=== PATIENT | male | born 2000 | race Two or more races ===

== ENCOUNTER 2024-05-31 17:26 | Emergency (ER) | payer BC, SELFPAY ==
[2024-05-31 18:07] VITALS: BP 134/84; PULSE 82; RESP 18; TEMP 36.8; O2SAT 97; BMI 27.7
--- NOTE | 2024-05-31 18:21 | ED_ITS ---
HPI - General Adult General Time Seen by Provider: 18:21 Date Seen: 05/31/24 Chief complaint: Nausea/Vomiting Stated complaint: Severe pain in lower back and stomach Time Seen by Provider: 05/31/24 18:21 Source: patient, family, RN notes reviewed and old records reviewed Mode of arrival: ambulatory Limitations: no limitations History of Present Illness HPI narrative: Anthony is a very pleasant 23-year-old male previously healthy who comes to the emergency room for evaluation of abdominal and back pain. Anthony states that he awoke this morning with back pain just below his rib cage that would wrap around to the for upper aspect of his stomach. It is associated with nausea any actually had an episode of vomiting this afternoon. He notes that he also has some pain with urination. Pain in his back does not change when he is urinating. He has not noticed fever or chills. He has not had problems with his gallbladder in the past. He is rating the pain a 10/10. He originally presented to Urgent Care but then was sent here to the hospital. He notes that he recently quit using marijuana and that he seems to have more pain recently. However, this pain started this morning when he woke up and has continued and worsened throughout the day. He has no leg symptoms, cough cold congestion or difficulty breathing. Related Data Home Medications ?Medication ?Instructions ?Recorded ?Confirmed No Known Home Medications 05/31/24 05/31/24 Allergies Allergy/AdvReac Type Severity Reaction Status Date / Time No Known Drug Allergies Allergy Verified 05/31/24 19:48 Review of Systems Status of ROS: Reports: 10 or more systems reviewed and unremarkable except as noted in History and below Const: Denies: fever, chills or fatigue Eyes: Denies: change in vision ENMT: Denies: throat pain, neck pain or nasal discharge Cardio: Denies: chest pain, swelling of feet/ankles, lightheadedness or shortness of breath with exertion Resp: Denies: shortness of breath or cough GI: Reports: abdominal pain, nausea and vomiting; Denies: diarrhea or constipation : Reports: painful urination; Denies: urinary frequency, urinary urgency or blood in urine Musculo: Denies: neck pain Integ/Breast: Denies: rash Neuro: Denies: headache or numbness in extremities Endo: Denies: fatigue Exam Narrative: Exam Narrative: Anthony is alert and oriented. 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 External ears eyes nose clear. Neck is supple without lymphadenopathy. Range of motion is full. Heart with regular rate and rhythm and lungs are clear bilaterally. No CVA tenderness with percussion. Abdominal exam shows a exquisite tenderness in the epigastrium. No evidence of distension. Abdomen is otherwise soft. Lower extremities show no edema. He is moving all as it his extremities without difficulty. No pain in the abdomen with straight leg raise internal external rotation of the hip or tapping of the heels. Const: Vital Signs, click to edit/add: Vital Signs - 24 hr 05/31/24 18:07 05/31/24 20:00 Temperature 98.2 F Pulse Rate 65 Pulse Rate [Pulse Oximeter] 82 Respiratory Rate 18 14 Blood Pressure 124/76 Blood Pressure [Ri ght Upper Arm] 134/84 Pulse Oximetry 97 98 Oxygen Delivery Me thod Room Air Documenting provider has reviewed patient's vital signs: yes Course Course ED Course: Differential diagnosis includes but is not limited to biliary colic, gastritis, pancreatitis, constipation, colitis, UTI, ureteral colic/kidney stone. At this time will place IV and use Toradol 15 mg and Zofran 4 mg for pain relief. Will obtain CBC, comprehensive panel, CRP, lipase, urinalysis at this time. Likely will need as CT for the level of discomfort he is describing below will await effect of pain medication. Reevaluation(s) Reevaluation #1: Patient notes improvement with the pain medication. He still has some pain. Urinalysis without evidence of hematuria or UTI. Have ordered an abdominal and pelvis CT with contrast for further evaluation. White count is elevated over 13,000. Vital Signs Vital signs: Initial Vital Signs Temperature 98.2 F 05/31/24 18:07 Temperature Source Temporal Artery Scan 05/31/24 18:07 Pulse Rate 82 05/31/24 18:07 Respiratory Rate 18 05/31/24 18:07 Blood Pressure 134/84 05/31/24 18:07 Blood Pressure Mean 100 05/31/24 18:07 Blood Pressure Position Sitting 05/31/24 18:07 Pulse Oximetry 97 05/31/24 18:07 Oxygen Delivery Method Room Air 05/31/24 18:07 Vital Signs Temperature 98.2 F 05/31/24 18:07 Pulse Rate 82 05/31/24 18:07 Respiratory Rate 18 05/31/24 18:07 Blood Pressure 134/84 05/31/24 18:07 Pulse Oximetry 97 05/31/24 18:07 Oxygen Delivery Method Room Air 05/31/24 18:07 Temperature 98.2 F 05/31/24 18:07 Pulse Rate 65 05/31/24 20:00 Respiratory Rate 14 05/31/24 20:00 Blood Pressure 124/76 05/31/24 20:00 Pulse Oximetry 98 05/31/24 20:00 Oxygen Delivery Method Room Air 05/31/24 18:07 Medications Administered Medications: Discontinued Medications Generic Name Dose Route Start Last Admin Trade Name Osiel PRN Reason Stop Dose Admin Sodium Chloride 500 mls @ 500 mls/hr 05/31/24 18:28 05/31/24 19:07 0.9 % Sodium Chloride 500 Ml IV 05/31/24 19:27 500 mls/hr .Q1H ONE Administration Ketorolac Tromethamine 15 mg 05/31/24 18:28 05/31/24 19:08 Ketorolac 15 Mg/Ml Inj IVP 05/31/24 18:29 15 mg ONCE ONE Administration Ondansetron HCl 4 mg 05/31/24 18:28 05/31/24 19:08 Ondansetron 2 Mg/Ml Inj IVP 05/31/24 18:29 4 mg ONCE ONE Administration Medical Decision Making MDM Narrative Medical decision making narrative: 1. Abdominal pain-suspect gastritis in this young man who now describes previous sensitivities to certain food and reflux. No acute or concerning findings on CT. At the end of the exam patient does note 1 episode of vomiting with a small amount of blood. Vital signs have been stable with no further vomiting. No unusual diarrhea. Patient does describe recent exposure to sick people who ate together ended up with vomiting and diarrhea. This does not appear to be like a normal virus. Patient is much improved after medications. Will give him omeprazole 40 mg this evening with plan of continued dosing 20 mg every night for 2 weeks. If he still has ongoing discomfort recommend he follow up with surgery as he may need HIDA scan although there were no stones indicated on the CT. 2. Dysuria-no evidence of urinary tract infection. Patient does admit to new sexual partner. Have added a GC chlamydia to his urinalysis from earlier. We will call if it is positive. 3. Renal stones-noted that there are stones in bilateral kidneys but none that are obstructing at this time. Have informed patient of this. 4. Disposition-home at this time. Will return for worsening symptoms and as needed. Medical Records Medical records reviewed: Yes I reviewed the patient's medical records Lab Data Lab results reviewed: Yes I reviewed the patient's lab results Labs: Lab Results 05/31/24 Range/Units 19:03 WBC 13.59 H (4.50-11.00) K/uL RBC 5.73 (4.30-5.90) m/uL Hgb 15.9 (13.5-17.5) gm/dL Hct 47.9 (37.0-53.0) % MCV 84 (80-100) fL MCH 28 (26-34) pg MCHC 33 (32-36) gm/dL RDW Coeff of Kathie 13.0 (11.5-15.5) % Plt Count 256 (140-440) K/uL Neut % (Auto) 81.7 H (42.0-72.0) % Lymph % (Auto) 7.9 L (20-44) % Dolores % (Auto) 9.2 (0.0-11.0) % Eos % (Auto) 0.8 (0.0-7.0) % Baso % (Auto) 0.2 (0.0-3.0) % Neut # (Auto) 11.10 H (1.7-7.0) K/uL Lymph # (Auto) 1.10 (0.90-2.90) K/uL Dolores # (Auto) 1.30 H (0.00-0.90) K/UL Eos # (Auto) 0.10 (0.00-0.50) K/uL Baso # (Auto) 0.00 (0.00-0.30) K/uL Abs Immat Gran (auto) 0.00 (0.00-0.30) K/uL Imm/Tot Granulo (auto) 0.2 % Sodium 137 (135-149) mmol/L Potassium 4.3 (3.6-5.1) mmol/L Chloride 99 (96-114) mmol/L Carbon Dioxide 29 (20-32) mmol/L Anion Gap 9 (7-15) mEq/L BUN 14 (5-24) mg/dL Creatinine 0.6 (0.5-1.5) mg/dL Estimated Creat Clear 186.83 Estimated GFR 140 ml/min Glucose 96 (60-115) mg/dL Calcium 9.2 (8.4-10.6) mg/dL Total Bilirubin 0.8 (0.1-1.5) mg/dL AST 37 H (12-35) U/L ALT 49 (4-50) U/L Alkaline Phosphatase 88 (40-150) U/L C-Reactive Protein 1.1 H (0.5-1.0) mg/dL Total Protein 8.2 (6.0-8.3) g/dL Albumin 4.8 (3.3-5.0) g/dL Lipase 42 (23-300) U/L Urine Color Yellow (Yellow) Urine Appearance Clear (Clear) Urine pH 8.5 (5.0-8.5) Ur Specific [place] 1.020 (1.000-1.030) Urine Protein 1+ A (Negative) Urine Glucose (UA) Negative (Negative) Urine Ketones Negative (Negative) Urine Blood Negative (Negative) Urine Nitrite Negative (Negative) Urine Bilirubin Negative (Negative) Urine Urobilinogen 1.0 (0.2-1.0) Ur Leukocyte Esterase Negative (Negative) Urine RBC 0-2 (0-2) Urine WBC 0-2 (0-5) Ur Squamous Epith Cells None (None-Few) Urine Bacteria None (None) Imaging Data CT scan - abdomen: Attestation: I have reviewed the pertinent imaging results. Radiologist's impression: Lower chest: No focal consolidation. Liver: No suspicious focal hepatic lesion. Gallbladder and bile ducts: Unremarkable. Pancreas: Unremarkable. Spleen: Unremarkable. Splenules are noted. Adrenal glands: Unremarkable. Kidneys: Kidneys enhance symmetrically, without hydronephrosis. Punctate nonobstructing bilateral renal calculi. Retroperitoneum: No lymphadenopathy. Bowel and mesentery: Bowel is not obstructed. No significant ascites, no pneumoperitoneum. Normal appendix. Bladder: Unremarkable for degree of distention. Reproductive organs: Unremarkable. Pelvic lymph nodes: No lymphadenopathy. Vessels: Unremarkable. Abdominal wall: No acute abdominal wall abnormality. Bones: No suspicious/aggressive focal osseous lesion. IMPRESSION: Punctate nonobstructing bilateral renal calculi. Discharge Plan Discharge Clinical Impression: Gastritis Patient Disposition: Home, Self-Care Condition: Improved Additional Instructions: Continue medication called omeprazole daily. This can be found at the pharmacy. You will take 1 tablet or 20 mg at bedtime. I would like you to take this for 2 weeks. Avoid alcohol during this time. Note for work to be off tomorrow. Return to the emergency room for worsening symptoms and as needed. Follow-up with our surgery clinic if you have ongoing pain and are not improving. The phone number is [phone]. Prescriptions: No Action No Known Home Medications Follow Up/Referrals: Provider,Not a Local [Primary Care Provider] - Stand Alone Forms: SergeMD Info Instructions
[2024-05-31 19:06] LABS: Appearance Urine Clear (Clear); Basophils Percent Auto 0.2 % (0.0-3.0); Bilirubin Urine Negative (Negative); Blood Urine Negative (Negative); Color Urine Yellow (Yellow); Eosinophils Percent Auto 0.8 % (0.0-7.0); Glucose Urine Negative (Negative); Hematocrit 47.9 % (37.0-53.0); Hemoglobin* 15.9 gm/dL (13.5-17.5); Immature Granulocytes Pct Auto 0.2 %; Ketones Urine Negative (Negative); Leukocyte Esterase Urine Negative (Negative); Lymphocytes Percent Auto 7.9 % (20-44); Mean Corpuscular HGB Conc 33 gm/dL (32-36); Mean Corpuscular Hemoglobin 28 pg (26-34); Mean Corpuscular Volume 84 fL (80-100); Monocytes Percent Auto 9.2 % (0.0-11.0); Neutrophils Percent Auto 81.7 % (42.0-72.0); Nitrite Urine Negative (Negative); Platelet Count* 256 K/uL (140-440); Protein Urine 1+ (Negative); RBC Urine 0-2 (0-2); Red Blood Count 5.73 m/uL (4.30-5.90); WBC Urine 0-2 (0-5); White Blood Count* 13.59 K/uL (4.50-11.00); pH Urine 8.5 (5.0-8.5)
[2024-05-31] MEDS: 0.9 % SODIUM CHLORIDE 500 ML 500 ML IV (19:07)
[2024-05-31] MEDS: KETOROLAC 15 MG/ML inj IVP (19:08)
[2024-05-31] MEDS: ONDANSETRON 2 MG/ML inj 4 MG IVP (19:08)
[2024-05-31 19:09] LABS: Slide Review Reflex No
[2024-05-31 19:19] LABS: Albumin* 4.8 g/dL (3.3-5.0); Chloride* 99 mmol/L (96-114); Potassium* 4.3 mmol/L (3.6-5.1); Sodium* 137 mmol/L (135-149)
[2024-05-31 19:21] LABS: Bilirubin Total* 0.8 mg/dL (0.1-1.5); Creatinine* 0.6 mg/dL (0.5-1.5); Est. Creatinine Clearance* 186.83; Estimated Glomerular Filt Rate 140 ml/min
[2024-05-31 19:22] LABS: Alanine Aminotransferase* 49 U/L (4-50); Alkaline Phosphatase* 88 U/L (40-150); Anion Gap 9 mEq/L (7-15); Aspartate Amino Transferase* 37 U/L (12-35); Blood Urea Nitrogen* 14 mg/dL (5-24); Carbon Dioxide* 29 mmol/L (20-32); Glucose* 96 mg/dL (60-115); Lipase* 42 U/L (23-300); Total Protein* 8.2 g/dL (6.0-8.3)
[2024-05-31 19:23] LABS: Calcium* 9.2 mg/dL (8.4-10.6)
[2024-05-31 19:25] LABS: C Reactive Protein* 1.1 mg/dL (0.5-1.0)
--- NOTE | 2024-05-31 19:41 | CRLHL7_ITS ---
For Patients: As a result of the Century Cures Act, medical imaging exams and procedure reports are released immediately into your electronic medical record. You may view this report before your referring provider. If you have questions, please contact your health care provider. INDICATION: Epigastric pain. TECHNIQUE: CT abdomen and pelvis acquired with 90 mL Isovue 370 contrast. COMPARISON: None. FINDINGS: Lower chest: No focal consolidation. Liver: No suspicious focal hepatic lesion. Gallbladder and bile ducts: Unremarkable. Pancreas: Unremarkable. Spleen: Unremarkable. Splenules are noted. Adrenal glands: Unremarkable. Kidneys: Kidneys enhance symmetrically, without hydronephrosis. Punctate nonobstructing bilateral renal calculi. Retroperitoneum: No lymphadenopathy. Bowel and mesentery: Bowel is not obstructed. No significant ascites, no pneumoperitoneum. Normal appendix. Bladder: Unremarkable for degree of distention. Reproductive organs: Unremarkable. Pelvic lymph nodes: No lymphadenopathy. Vessels: Unremarkable. Abdominal wall: No acute abdominal wall abnormality. Bones: No suspicious/aggressive focal osseous lesion. IMPRESSION: Punctate nonobstructing bilateral renal calculi. Please note that all CT scans at this facility use dose modulation, iterative reconstruction, and/or weight-based dosing when appropriate to reduce radiation dose to as low as reasonably achievable. Dictated by Everardo Cameron MD @ 05/31/2024 8:27:43 PM (Electronically Signed)
[2024-05-31 20:00] VITALS: BP 124/76; PULSE 65; RESP 14; O2SAT 98
[2024-05-31] MEDS: OMEPRAZOLE 20 MG CAPSULE DR 40 MG PO (21:07)
[2024-05-31 21:26] LABS: Lab Add On Test New Spec Needed
== END 2024-05-31 21:18 | disposition home or self-care (01) ==
PROVIDERS: Emergency Provider Family Medicine
DX: K29.70 Gastritis, unspecified, without bleeding (principal); R30.0 Dysuria
CPT/HCPCS: 36415; 74177; 80053; 81001; 83690; 85025; 86140; 96374; 96375; 99284; A9270; J1885; J2405; J7030; Q9967

== ENCOUNTER 2025-01-25 18:32 | Emergency (ER) | payer OTHER, BC, SELFPAY ==
--- NOTE | 2025-01-25 18:34 | ED.GENADULT ---
HPI - General Adult General Chief complaint: Extremity Pain/Injury, Lower Stated complaint: left foot injury/left hand injury Time Seen by Provider: 01/25/25 18:34 History of Present Illness HPI narrative: 24-year-old gentleman presenting to the ER today accompanied by his work friend for evaluation of a left foot injury and left foot pain and numbness. He was at work today when he accidentally crushed his left foot under a [place]. He is having pain and numbness in the entire left foot roughly from the mid foot down to the toes. There is no laceration. No bruising. No swelling. He is not able to step down her bear weight on the foot. No other injuries. He has not yet taken any medicine for the pain. History is limited by language barrier. We attempted to use our [place]ik-Sinhala iPad based bouffant curtain machine tender service but it is malfunctioning. We did get history through the patient's friend who is bilingual but is not a certified finisher plate. Related Data Previous Rx's ?Medication ?Instructions ?Recorded doxycycline hyclate 100 mg capsule 100 mg PO BID #14 caps 08/02/24 Allergies Allergy/AdvReac Type Severity Reaction Status Date / Time No Known Drug Allergies Allergy Verified 05/31/24 19:48 [facility] Medical History (Updated 01/25/25 @ 20:15 by Bk Barros MD) No significant past medical history Surgical History (Updated 01/25/25 @ 19:04 by Larry Erickson RN) No significant past surgical history Social History Smoking Status: Never smoker Second hand tobacco smoke exposure: No How often do you have a drink containing alcohol: never AUDIT-C Alcohol total score: 0 Non-prescribed substance use: denies use Exam Narrative: Exam Narrative: Constitutional: Appears well-developed and well-nourished. Active. Non-toxic appearing. HENT: Head: Atraumatic. No signs of injury. Nose: No nasal discharge. Mouth/Throat: Mucous membranes are moist. No trismus Eyes: Conjunctivae normal and EOM are normal. Pupils are equal, round, and reactive to light. Right eye exhibits no discharge. Left eye exhibits no discharge. No icterus. Neck: Normal range of motion. Neck supple. No adenopathy. No stridor. Cardiovascular: Normal rate and regular rhythm. No murmur heard. No murmurs, rubs, or gallops. Brisk capillary refill. Strong dorsalis pedis pulse. Normal distal cap refill Pulmonary/Chest: Effort normal. No stridor. No respiratory distress. No wheezes.No rhonchi. No rales. No retractions. Musculoskeletal: Normal range of motion in his hip, knee, ankle. No tenderness of the tibia/fibula, medial and lateral malleoli of the ankle. No tenderness of the calcaneus of the foot. Tenderness over the midfoot without any obvious bony deformity or crepitus. No bruising or swelling. Also tenderness over the forefoot and all 5 metatarsals. Also tenderness over the toes. No definite focal tenderness. No bruising. No swelling. Neurological: Alert. Normal strength. No cranial nerve deficit or sensory deficit. Coordination normal. GCS eye subscore is 4. GCS verbal subscore is 5. GCS motor subscore is 6. Complains of subjective paresthesias in the toes but can feel light touch. Skin: Skin is warm. No rash noted. Const: Vital Signs, click to edit/add: Vital Signs - 24 hr 01/25/25 18:40 01/25/25 19:32 Temperature 98.2 F Pulse Rate [Right Pulse Oximeter] 61 Respiratory Rate 18 Blood Pressure [Ri ght Upper Arm] 130/86 Pulse Oximetry 98 98 Oxygen Delivery Me thod Room Air Course Course ED Course: Recheck-pain somewhat improved. I am now able to get a functional bouffant curtain machine tender to confirm history and details of the pain. Now able to endorse that his pain is really across the toes and forefoot. Not really having pain in the midfoot. He does have signs of evolving ecchymosis across the heads of the metatarsals. No ongoing numbness. Vital Signs Vital signs: Initial Vital Signs Temperature 98.2 F 01/25/25 18:40 Temperature Source Temporal Artery Scan 01/25/25 18:40 Pulse Rate 61 01/25/25 18:40 Respiratory Rate 18 01/25/25 18:40 Blood Pressure 130/86 01/25/25 18:40 Blood Pressure Mean 100 01/25/25 18:40 Blood Pressure Position Sitting 01/25/25 18:40 Pulse Oximetry 98 01/25/25 18:40 Oxygen Delivery Method Room Air 01/25/25 18:40 Vital Signs Temperature 98.2 F 01/25/25 18:40 Pulse Rate 61 01/25/25 18:40 Respiratory Rate 18 01/25/25 18:40 Blood Pressure 130/86 01/25/25 18:40 Pulse Oximetry 98 01/25/25 18:40 Oxygen Delivery Method Room Air 01/25/25 18:40 Temperature 98.2 F 01/25/25 18:40 Pulse Rate 61 01/25/25 18:40 Respiratory Rate 18 01/25/25 18:40 Blood Pressure 130/86 01/25/25 18:40 Pulse Oximetry 98 01/25/25 19:32 Oxygen Delivery Method Room Air 01/25/25 18:40 Medications Administered Medications: Discontinued Medications Generic Name Dose Route Start Last Admin Trade Name Freq PRN Reason Stop Dose Admin Ondansetron HCl 4 mg 01/25/25 18:55 01/25/25 19:01 Ondansetron Odt 4 Mg Tab PO 01/25/25 18:56 4 mg ONCE ONE Administration Oxycodone/Acetaminophen 1 tab 01/25/25 18:55 01/25/25 19:03 Oxycodone/Apap 5-325 Tablet PO 01/25/25 18:56 1 tab ONCE ONE Administration Medical Decision Making [facility] Narrative Medical decision making narrative: 24-year-old male presenting to the ER today with left foot pain after he had his foot crushed under a [place]. He he presents with pain across the left forefoot and toes. Fortunately x-rays are negative for any acute fracture. He is neurovascularly intact in the toes. This is an isolated foot injury. No other injury from a [place]. Pain is improved after oral medications here in the ER. He has patient to a ortho shoe and crutches for limited weight-bearing. Vital within over work. Discussed with the patient and his friend through the psychiatric secretary. Discussed that at this point we presume this is probably a contusion. Will remain limited weight-bearing and protected in the ortho shoe until improved. Not improved in 5-7 days will recheck. Prescription for [place] through the [employer] machine provided. Opiate precautions reviewed. Questions answered. Imaging Data XR foot: Attestation: I have reviewed the pertinent imaging results. Radiologist's impression: IMPRESSION: 1. No acute osseous injuries are noted. Discharge Plan Discharge Clinical Impression: Acute foot pain Patient Disposition: Home, Self-Care Condition: Stable Instructions: Crush Injury (ED) Additional Instructions: As we discussed, please come back to the ER right away if you have worsening or severe pain, numbness in her foot, or any other concerns. Wear the protective shoe and use the crutches for the next few days and the your foot is feeling better. When your foot feels better it is okay to bear weight off the crutches and walking your normal shoes. Be careful with prescription pain medication because it can cause dizziness, drowsiness, constipation, and can be addictive. Use Tylenol or ibuprofen 1st. Use prescription pain medication if Tylenol and ibuprofen are not effective. If your foot is not completely healed within 5-7 days, please come back to the ER or see your doctor for a recheck. [place] discutimos, por favor regrese a la camryn de emergencias inmediatamente si tiene dolor creciente o nohelia, entumecimiento en cobos pie, o cualquier otra preocupaci?n. Use el zapato protector y las muletas montserrat los pr?ximos d?as hasta que cobos pie se sienta mejor. Cuando cobos pie se sienta mejor, est? nivia soportar peso sin las muletas y usar gordon zapatos normales. Tenga cuidado con los medicamentos para el dolor recetados, ya que pueden causar mareos, somnolencia, estre?imiento y pueden ser adictivos. Use Tylenol o ibuprofeno imer. Use medicamentos para el dolor recetados si el Tylenol y el ibuprofeno no son efectivos. Si cobos pie no est? completamente sanado en 5-7 d?as, por favor regrese a la camryn de emergencias o consulte a cobos m?dico para un chequeo. Prescriptions: No Action doxycycline hyclate 100 mg capsule 100 mg PO BID Qty: 14 0RF Follow Up/Referrals: Provider,Not a Local [Primary Care Provider, Family Practice] Stand Alone Forms: Work/School Release, MyHealth Info Instructions
[2025-01-25 18:40] VITALS: BP 130/86; PULSE 61; RESP 18; TEMP 36.8; O2SAT 98; BMI 27.7
--- NOTE | 2025-01-25 18:49 | CRLHL7_ITS ---
For Patients: As a result of the Century Cures Act, medical imaging exams and procedure reports are released immediately into your electronic medical record. You may view this report before your referring provider. If you have questions, please contact your health care provider. INDICATION: Crush foot injury TECHNIQUE: Foot radiograph 3 views left COMPARISON: None FINDINGS: Bone: No acute fractures or aggressive bone lesions are identified. Joint: The visualized hindfoot, midfoot, and forefoot joints are unremarkable in appearance. No significant ankle effusion is seen. Soft tissue: Unremarkable. No radiopaque foreign bodies are seen. IMPRESSION: 1. No acute osseous injuries are noted. Dictated by: Jeffery Chu MD @ 01/25/2025 19:47:44 (Electronically Signed)
[2025-01-25] MEDS: ONDANSETRON ODT 4 MG TAB PO (19:01)
[2025-01-25] MEDS: OxyCODONE/APAP 5-325 TABLET 1 TAB PO (19:03)
[2025-01-25 19:32] VITALS: O2SAT 98
[2025-01-25 20:23] VITALS: BP 125/78; PULSE 68; RESP 18; TEMP 36.8; O2SAT 98
[2025-01-25 20:25] VITALS: BP 125/78; PULSE 68; RESP 18; TEMP 36.8
== END 2025-01-25 20:25 | disposition home or self-care (01) ==
PROVIDERS: Emergency Provider Emergency Medicine
DX: M79.672 Pain in left foot (principal); W23.0XXA Caught, crushed, jammed, or pinched between moving objects, initial encounter; Y99.0 Civilian activity done for income or pay
CPT/HCPCS: 73630; 94761; 99282; 99283; A9270